=== PATIENT | male | born 1955 | race Caucasian/White ===

== ENCOUNTER 2016-07-31 11:02 | Emergency (ER) | payer OTHER ==
[~2016-07-31] VITALS: Ht 190.5 cm; Wt 100.0 kg
[2016-07-31 11:03] VITALS: BP 119/58; PULSE 87; RESP 15; TEMP 98.1; O2SAT 98
--- NOTE | 2016-07-31 11:56 | PD ---
HPI Chief Complaint: Skin Problem Time Seen by Provider: 11:25 Travel History International Travel<30 days: No Contact w/Intl Traveler<30days: No Traveled to known affect area: No History of Present Illness HPI Patient comes in for evaluation of ecchymosis on his right buttocks status post fall a week ago. Patient's was concerned because after sitting all day yesterday it appeared red and tender last night. Patient denies doing anything for this aside from jack ice. Patient suffers from ataxia which caused the fall. Patient states he is trying to be careful when he walks to avoid falling again. Denies hitting his head or loss consciousness. Denies any numbness or tingling, fevers, or loss of bowel or bladder. Review of Systems Except as stated in HPI: all other systems reviewed are Neg Physical Exam Narrative GENERAL: Well-developed, overly nourished, in no acute distress, and non-ill appearing. SKIN: Warm and dry. Larger area of ecchymosis noted right buttocks. It is nontender, afebrile, nonindurated, nonerythematous, and without fluctuation or crepitus. HEAD: Atraumatic. Normocephalic. EYES: Pupils equal and round. EOMI. No scleral icterus. No injection or drainage. ENT: No nasal bleeding or discharge. Mucous membranes pink and moist. NECK: Trachea midline. Supple. No nuclear rigidity. RESPIRATORY: No accessory muscle use. No respiratory distress. MUSCULOSKELETAL: No obvious deformities. No clubbing. No cyanosis. No edema. Full range of motion. NEUROLOGICAL: Awake and alert. No obvious cranial nerve deficits. Motor grossly within normal limits. Normal speech. PSYCHIATRIC: Appropriate mood and affect; insight and judgment normal. Data Data Last Documented VS Vital Signs Date Time Temp Pulse Resp B/P Pulse Ox O2 Delivery O2 Flow Rate FiO2 07/31/16 11:03 98.1 87 15 119/58 98 MDM Medical Screen Exam Complete: Yes Emergency Medical Condition: No Narrative Course History and physical exam findings are not consistent with an emergent medical condition. He was given the option of receiving additional care, but has declined. Therefore the appropriate counseling recommendations were discussed with the patient and he was instructed to follow-up with his primary care physician as soon as possible for reevaluation. Patient was also informed of community resources from which he can obtain additional care. He is agreeable and verbalizes an understanding of the proposed plan. The patient states he will immediately return to the emergency department if his current complaints do not improve, new symptoms arise, or emergent condition develops. Patient ambulated out of the emergency department without difficulty. Primary Impression: Encounter for medical screening examination Disposition: [facility]-ED USE ONLY Condition: Stable Pa Ruvalcaba Jul 31, 2016 11:56
== END 2016-07-31 11:38 | disposition left against medical advice (07) ==
LOC: NEPB 11:02
DX: S30.0XXA Contusion of lower back and pelvis, initial encounter (principal); R27.0 Ataxia, unspecified; W19.XXXA Unspecified fall, initial encounter; Y93.9 Activity, unspecified; Y92.9 Unspecified place or not applicable
CPT/HCPCS: 99281